=== PATIENT | female | born 1985 | race Two or more races ===

== ENCOUNTER 2021-09-12 13:39 | Emergency (ER) | payer MEDICAID ==
[2021-09-12 14:33] LABS: RED BLOOD COUNT 4.18 M/UL (4.00-5.10)
[2021-09-12 15:05] LABS: BUN/CREATININE RATIO 16 (0-10)
== END 2021-09-12 18:12 | disposition home or self-care (01) ==
LOC: ER1 13:39
PROVIDERS: Nurse Practitioner
DX: R07.89 Other chest pain (principal)
CPT/HCPCS: 71045; 80053; 81001; 82550; 82553; 83874; 84484; 85025; 85379; 93005; 96374; 99285; J1885; J7030

== ENCOUNTER 2021-10-17 11:16 | Emergency (ER) | payer OTHER ==
[2021-10-17 12:07] LABS: HEMOGLOBIN 11.2 gm/dl (12.3-15.3); RED BLOOD COUNT 4.26 M/UL (4.00-5.10); WHITE BLOOD COUNT 8.7 K/UL (4.5-11.0)
[2021-10-17 12:29] LABS: BUN/CREATININE RATIO 23 (0-10)
[2021-10-17] MEDS ORDERED: MACROBID 100 M100 MG PO (13:48)
== END 2021-10-17 13:59 | disposition home or self-care (01) ==
LOC: ER1 11:16
PROVIDERS: Physician Assistant
DX: O23.41 Unspecified infection of urinary tract in pregnancy, first trimester (principal); O20.0 Threatened abortion; Z3A.08 8 weeks gestation of pregnancy
CPT/HCPCS: 80053; 81001; 84702; 85025; 86900; 86901; 87086; 99284